=== PATIENT | male | born 1990 | race Caucasian/White ===

== ENCOUNTER 2019-07-17 06:46 | Emergency (ER) | payer BC ==
[~2019-07-17] VITALS: Ht 180.3 cm; Wt 70.3 kg
[2019-07-17 06:48] VITALS: BP 140/101
[2019-07-17] MEDS ORDERED: ADDERALL 20 MG20 MG PO (06:53)
[2019-07-17] MEDS ORDERED: NORCO 5-325 TA1 EAC1 PO (07:38)
[2019-07-17] MEDS ORDERED: IBUPROFEN 600600 M1 PO (07:38)
[2019-07-17] MEDS ORDERED: SENNA-DOCUSATE1 EAC1 PO (07:38)
== END 2019-07-17 07:44 | disposition home or self-care (01) ==
LOC: ER 06:46
DX: S62.352A Nondisplaced fracture of shaft of third metacarpal bone, right hand, initial encounter for closed fracture (principal); S62.314A Displaced fracture of base of fourth metacarpal bone, right hand, initial encounter for closed fracture; Z79.899 Other long term (current) drug therapy; W22.01XA Walked into wall, initial encounter; Y93.89 Activity, other specified; Y92.89 Other specified places as the place of occurrence of the external cause; Y99.8 Other external cause status